=== PATIENT | male | born 1990 | race Caucasian/White ===

== ENCOUNTER 2024-04-01 08:22 | Emergency (ER) | payer OTHER, SELFPAY ==
[2024-04-01 08:55] VITALS: BMI 28.8
[2024-04-01] MEDS: ZOFRAN 4 MG IV (08:55)
[2024-04-01] MEDS: TORADOL 30 MG IV (08:55)
[2024-04-01 09:00] VITALS: BP 156/69
[2024-04-01] MEDS: NSS 1000 IV (09:02)
--- NOTE | 2024-04-01 10:01 | ED.GENMED ---
History of Present Illness
General
Chief Complaint: Abdominal Symptoms
Source: patient and spouse
Exam Limitations: none
Time Seen by Provider: 04/01/24 08:28
History of Present Illness
History of Present Illness:
33-year-old male presents with acute onset of right flank and right lower abdominal pain. The patient also vomited and has been nauseous. The pain started suddenly while urinating. He presents with 10 out of 10 pain. No fevers. No obvious injury
Past History
Past History
ED Past Medical History: None
ED Past Surgical History: Appendectomy
Phy Exam
Physical Exam
Physical Exam:
CONSTITUTIONAL Patient alert and oriented to person, place and time. Moderate pain distress. Vital signs reviewed.
HEAD atraumatic, normocephalic.
EYES eyelids normal to inspection, Pupils equally round and reactive to light, Extraocular muscles intact, Conjunctiva normal, Sclera normal.
NECK normal range of motion, Trachea midline, no jugular venous distention.
RESPIRATORY CHEST No respiratory distress noted, Chest expansion equal, Bilateral breath sounds clear.
CARDIOVASCULAR regular rate and rhythm, Heart sounds normal.
ABDOMEN mild right-sided abdominal tenderness, Bowel sounds normal. No distention.
BACK normal inspection, no obvious deformities
UPPER EXTREMITY range of motion normal, Motor strength normal, no cyanosis, no edema.
LOWER EXTREMITY range of motion normal, Motor strength normal, no cyanosis, no edema.
NEURO Speech normal, No focal motor deficits, Ramesh coma scale 15, Memory normal, Cranial Nerves intact to screening exam.
SKIN skin warm, dry, and normal in color.
PSYCHIATRIC patient oriented to person place and time, Normal affect.
Course
Orders/Labs/Results
Orders:
Orders
04/01/24 08:31
0.9% Sodium Chloride 1000 ml [Nss] 1,000 ml IV BOLUS
Ketorolac [Toradol] 30 mg IV NOW STA
04/01/24 08:36
Ondansetron Injectable [Zofran] 4 mg .ROUTE .STK-MED ONE
04/01/24 08:37
Ondansetron Injectable [Zofran] 4 mg IV NOW STA
04/01/24 08:53
CT Abd/pel Without Iv Or Oral Urgent
Comment:
Reason For Exam: R flank pain
04/01/24 10:11
Complete Blood Count/With Diff Urgent
Comprehensive Metabolic Panel Urgent
Urinalysis Reflex To Culture Urgent
Date Specimen was Collected: 04/01/24
Time Specimen was Collected: 09:59
Urine Microscopic Reflex Cult Urgent
Abnormal Lab Results
04/01/24
10:11
Carbon Dioxide 19 L mmol/L
(22-30)
BUN 21 H mg/dl
(9-20)
Glucose 129 H mg/dl
(70-99)
ALT 54 H U/L
(0-50)
Urine Ketones Trace A
(Negative)
Ur Occult Blood Reflex 2+ A
(Negative)
04/01/24 10:11
04/01/24 10:11
Vital Signs
Initial and Last Documented VS:
Initial Vital Signs
Temp Pulse Resp Pulse Ox
98.2 F 88 22 100
04/01/24 08:24 04/01/24 08:24 04/01/24 08:24 04/01/24 08:24
Last Documented Vital Signs
Temp Pulse Resp BP Pulse Ox
98.2 F 54 18 139/68 100
04/01/24 08:24 04/01/24 10:13 04/01/24 10:13 04/01/24 10:13 04/01/24 10:13
MDM/Problems Addressed
MDM/Problems Addressed:
Nephrolithiasis
*Radiology
Radiology exam reviewed: preliminary read by ED provider (Right-sided nephrolithiasis) and radiology read reviewed
*Pulse Oximetry
Patient hypoxic: no
*Critical Care Note
Total Time (30-74mins, 75-104mins- exclusive of procedures): Not Applicable
Data Reviewed
Source: patient and family
Prescriptions/Medications Considered But Not Given:
Consider narcotics with patient would like to trial nonnarcotic symptom control
Patient Management
Discussion with other providers: Radiologist (3 mm stone)
Escalation/DeEscalation of care consider admission/obs:
Patient feels much better. Does still have mild pain. Patient states feels well enough to go home. Outpatient follow-up with
ED Attending Note
-
Portions of this chart may have been created with voice recognition software.� Occasional wrong word or��sound alike� substitutions may have occurred due to the inherent limitations of voice recognition software.
Discharge Plan
Departure
Patient Disposition: Home (Routine Discharge)
Date of Disposition: 04/01/24
Time of Disposition: 11:15
Patient with high blood pressure during this ER visit?: No
Discharge Problem:
Nephrolithiasis
Instructions: Kidney Stone, Adult ED
Prescriptions:
New
tamsulosin [Flomax] 0.4 mg capsule
0.4 mg PO HS Qty: 20 0RF
hydrocodone-acetaminophen 5-325 mg tablet
2 tab PO Q6H PRN (Reason: Pain) Qty: 15 0RF
Referrals:
NONE,* [Family Provider] -
Activity Restrictions/Additional Instructions:
Please drink plenty fluids. Please strain your urine as discussed. Return immediately for fevers, intractable pain, intractable vomiting or any other concerns. Please see your doctor or urology in the next 1 week if symptoms persist.
Interventions
Interventions:
*Risk Screen - Suicide Last Done: 04/01/24 08:24
*General Assessment Last Done: 04/01/24 09:13
*Neglect/Abuse Screening Last Done: 04/01/24 08:24
ED- Fall Risk Assessment Last Done: 04/01/24 09:13
*ED COVID-19 Vaccine History Last Done: 04/01/24 08:55
[facility] Assessment Last Done: 04/01/24 08:55
Discharge Date and Time
Print Language: CHINESE
[2024-04-01 10:13] VITALS: BP 139/68
[2024-04-01 10:33] LABS: % Basophils 0.5 % (0-2); % Immature Granulocytes 0.3 % (0-0.5); % Lymphocytes 38.5 % (20.5-51.1); % Monocytes 9.2 % (1.7-9.3); % Neutrophils 46.5 % (42.2-75.2); Absolute Eosinophils 0.3 10^3/uL (0-0.7); Absolute Lymphocytes 2.5 10^3/uL (1.2-3.4); Absolute Monocytes 0.6 10^3/uL (0.1-0.6); Hematocrit 46.3 % (39.0-52.0); Hemoglobin 16.7 g/dL (13.0-18.0); Mean Corp Hgb Conc. 36.1 g/dL (33.0-37.0); Mean Corpuscular Hgb 30.9 pg (27.0-31.0); Mean Corpuscular Volume 85.7 fL (80.0-94.0); Mean Platelet Volume 10.1 fL (7.4-10.4); Nucleated Red Blood Cells % 0 % (-); Platelet Count 226 10^3/uL (130-400); Red Cell Dist. Width 12.3 % (11.5-14.5); White Blood Cell Count 6.5 10^3/uL (4.8-10.8)
[2024-04-01 10:37] LABS: Urine Albumin Negative (Neg - Trace); Urine Bilirubin Negative (Negative); Urine Character Clear (Clear); Urine Color Yellow; Urine Glucose Negative (Negative); Urine Ketone Trace (Negative); Urine Leukocyte Negative (Negative); Urine Nitrite Negative (Negative); Urine Occult Blood 2+ (Negative); Urine Urobilinogen Negative (Neg - 1+)
[2024-04-01 10:45] LABS: ALT (SGPT) 54 U/L (0-50); AST (SGOT) 53 U/L (17-59); Albumin 4.8 g/dl (3.5-5.0); Alkaline Phosphatase 81 U/L (38-126); Blood Urea Nitrogen 21 mg/dl (9-20); Calcium 9.9 mg/dl (8.4-10.2); Carbon Dioxide 19 mmol/L (22-30); Chloride 106 mmol/L (98-107); Estimated Creatinine Clearance 102 ml/min; Glucose 129 mg/dl (70-99); Potassium 4.9 mmol/L (3.5-5.1); Sodium 142 mmol/L (135-145); Total Bilirubin 0.8 mg/dl (0.2-1.3); Total Protein 7.1 g/dl (6.3-8.2); eGFR > 60.00
[2024-04-01 11:18] LABS: Urine Mucus Few
[2024-04-01] MEDS: TYLENOL 1000 MG PO (11:19)
[2024-04-01 11:25] LABS: Urine Red Blood Cell 30-40 /HPF (0-2); Urine Urothelial Cell 0-2 /LPF (FEW)
[2024-04-01 11:26] LABS: Urine White Cell 0-2 /HPF (0-5)
== END 2024-04-01 11:30 | disposition home or self-care (01) ==
LOC: EMR 08:22
PROVIDERS: EMERGENCY PHYSICIAN Emergency Medicine
DX: N13.2 Hydronephrosis with renal and ureteral calculous obstruction (principal); Z90.49 Acquired absence of other specified parts of digestive tract
CPT/HCPCS: 99284; 96374; 96375; 96361; 74176; 80053; 81003; 81015; 85025